=== PATIENT | female | born 1925 | race Caucasian/White ===

== ENCOUNTER 2016-06-16 12:31 | Inpatient (IN) | payer MEDICARE, BC ==
[~2016-06-16] VITALS: Ht 154.9 cm; Wt 87.9 kg
[2016-06-16] MEDS ORDERED: SODIUM CHLORIDE 0.9% 1,000 ML IVB ONE (12:58)
[2016-06-16 14:08] LABS: Basophils # (auto) 0 uL; Basophils % (auto) 0.6 % (0.0-2.0); DEFINITIVE VIEW TRANSMISSION; Eosinophils # (auto) 0.1 uL; Eosinophils % (auto) 0.6 % (0.0-7.0); Hematocrit 29.1 % (36.0-46.0); Lymphocytes # (auto) 1.1 uL; Lymphocytes % (auto) 13.3 % (10.0-50.0); Mean Corpuscular Hemoglobin 23.7 pg (28.0-32.0); Mean Corpuscular Volume 76.7 fL (80.0-100.0); Mean Platelet Volume 8.3 fL (7.4-10.4); Monocytes # (auto) 0.4 uL; Monocytes % (auto) 5.1 % (0.0-12.0); Neutrophils # (auto) 6.6 uL; Neutrophils % (auto) 80.4 % (37.0-80.0); Platelet Count (auto) 373 10^3/uL (140-450); Red Cell Distribution Width 18.6 % (11.6-16.0); White Blood Cell 8.2 10^3/uL (4.4-10.8)
[2016-06-16 14:29] LABS: Urine Bilirubin Negative (Negative); Urine Blood Negative /uL (Negative); Urine Color Yellow (Yellow); Urine Glucose Normal (Normal); Urine Hyaline Cast FEW /lpf (0 - 2); Urine Ketone Negative (Negative); Urine Nitrite Negative (Negative); Urine RBC <1 /hpf (0 - 4); Urine Squamous Epithelial Cell FEW /hpf (<5); Urine Urobilinogen Normal (Negative)
[2016-06-16 14:36] LABS: BUN/Creatinine Ratio 20.6; Bilirubin, Total 0.4 mg/dL (0.2-1.0); Calcium 7.3 mg/dL (8.5-10.1); Magnesium 2.3 mg/dL (1.6-2.6); Potassium 3.4 mmol/L (3.5-5.1); Total Protein 6.3 g/dL (6.4-8.2)
[2016-06-16] MEDS ORDERED: CARV3.1240 (17:17)
[2016-06-16] MEDS ORDERED: ETH1T (17:17)
[2016-06-16] MEDS ORDERED: LOSA100T27 (17:17)
[2016-06-16] MEDS ORDERED: GABA300C8 (17:17)
[2016-06-16] MEDS ORDERED: MAGN400T23 (17:17)
[2016-06-16] MEDS ORDERED: cefTRIAXone 1GM/50ML D5W 50 ML IV ONE (18:15)
[2016-06-16] MEDS ORDERED: MORPHINE SULF INJ 2 MG/ML SYRINGE 1ML IV PRN ×2 (18:15)
[2016-06-16] MEDS ORDERED: POTASSIUM CHLORIDE 8 MEQ TAB PO ONE (18:15)
[2016-06-16] MEDS ORDERED: DOCUSATE SOD 100 MG CAP PO PRN (18:15)
[2016-06-16] MEDS ORDERED: NITROGLYCERIN 0.4 MG SL TAB SL PRN (18:15)
[2016-06-16] MEDS ORDERED: ONDANSETRON HCL 4 MG/2 ML VIAL IV PRN (18:15)
[2016-06-16] MEDS ORDERED: HYDROcodone-ACET 5/325MG TAB PO PRN (18:15)
[2016-06-16] MEDS ORDERED: ASPirin-EC 81 mg tab PO ONE (18:15)
[2016-06-16] MEDS ORDERED: ACETAMINOPHEN 325 MG TAB PO PRN (18:15)
[2016-06-16] MEDS ORDERED: FUROSEMIDE 40 MG TAB PO ONE (18:30)
[2016-06-16] MEDS ORDERED: LOSARTAN POTASSIUM 50 MG TAB PO ONE (18:30)
[2016-06-16] MEDS ORDERED: amLODIPine BESYLATE 5 MG TAB PO ONE (18:30)
[2016-06-16] MEDS: FAMOTIDINE 20 MG TAB PO SCH (19:43)
[2016-06-16] MEDS: ENOXAPARIN SOD 40 MG/0.4 ML SYRINGE SC SCH (19:44)
[2016-06-16] MEDS: MULTIPLE VITAMIN TAB PO SCH (20:07)
[2016-06-16] MEDS: BOOST PLUS 8 ounce PO SCH (20:07)
[2016-06-16 20:30] VITALS: BP 117/64
[2016-06-16 21:00] VITALS: BP 117/64
[2016-06-16] MEDS: SODIUM CHLOR 0.9% PF (SALINE LOCK) 10ML VIAL IV SCH (21:17)
[2016-06-16] MEDS: REQUIP 2 MG PO SCH (21:18)
[2016-06-16] MEDS: CARVEDILOL 3.125 MG TAB PO SCH (21:21)
[2016-06-16] MEDS: ATORVASTATIN 20 MG TAB PO SCH (21:21)
[2016-06-17] VITALS (7 sets, daily range): BP systolic 127–166; BP diastolic 56–82
[2016-06-17 05:30] LABS: Basophils # (auto) 0.1 uL; Basophils % (auto) 0.8 % (0.0-2.0); DEFINITIVE VIEW TRANSMISSION; Eosinophils # (auto) 0 uL; Eosinophils % (auto) 0.5 % (0.0-7.0); Hematocrit 30.2 % (36.0-46.0); Hemoglobin 9.6 g/dL (12.2-16.2); Lymphocytes # (auto) 2.3 uL; Lymphocytes % (auto) 30.1 % (10.0-50.0); Mean Corpuscular Hgb Conc. 31.6 g/dL (32.0-36.0); Mean Corpuscular Volume 75.9 fL (80.0-100.0); Mean Platelet Volume 8.7 fL (7.4-10.4); Monocytes # (auto) 0.5 uL; Monocytes % (auto) 7.1 % (0.0-12.0); Neutrophils # (auto) 4.7 uL; Neutrophils % (auto) 61.5 % (37.0-80.0); Platelet Count (auto) 417 10^3/uL (140-450); Red Cell Distribution Width 18.4 % (11.6-16.0); White Blood Cell 7.7 10^3/uL (4.4-10.8)
[2016-06-17] MEDS: REQUIP 2 MG PO SCH (06:00)
[2016-06-17] MEDS: SODIUM CHLOR 0.9% PF (SALINE LOCK) 10ML VIAL IV SCH ×3 (06:00→22:26)
[2016-06-17 06:02] LABS: Albumin 3.3 g/dL (3.4-5.0); BUN/Creatinine Ratio 19.3; Bilirubin, Total 0.3 mg/dL (0.2-1.0); Calcium 7.8 mg/dL (8.5-10.1); Potassium 3.9 mmol/L (3.5-5.1); Total Protein 7.1 g/dL (6.4-8.2)
[2016-06-17] MEDS: LEVOTHYROXINE SODIUM 25 MCG TAB PO SCH (06:45)
[2016-06-17] MEDS ORDERED: cloNIDine HCL 0.1 MG TAB PO PRN (10:00)
[2016-06-17] MEDS ORDERED: MAGNESIUM OXIDE 400 MG TAB PO SCH (10:00)
[2016-06-17] MEDS: FUROSEMIDE 40 MG TAB PO SCH (12:20)
[2016-06-17] MEDS: LOSARTAN POTASSIUM 50 MG TAB PO SCH (12:21)
[2016-06-17] MEDS: CARVEDILOL 3.125 MG TAB PO SCH ×2 (12:22→22:18)
[2016-06-17] MEDS: amLODIPine BESYLATE 5 MG TAB PO SCH (12:22)
[2016-06-17] MEDS: POTASSIUM CHL 10 Meq TABLET PO SCH (12:22)
[2016-06-17] MEDS: ASPirin-EC 81 mg tab PO SCH (12:23)
[2016-06-17] MEDS: MULTIPLE VITAMIN TAB PO SCH (12:23)
[2016-06-17] MEDS: cefTRIAXone 1GM/50ML D5W 50 ML IV SCH (12:24)
[2016-06-17] MEDS: MAGNESIUM OXIDE 400 MG TAB PO SCH (12:24)
[2016-06-17] MEDS: BOOST PLUS 8 ounce PO SCH ×3 (12:24→18:06)
[2016-06-17] MEDS ORDERED: ROPI1TAB22 PO (12:34)
[2016-06-17] MEDS: FAMOTIDINE 20 MG TAB PO SCH (12:42)
[2016-06-17] MEDS: PRAMIPEXOLE DIHYDROCHLORIDE MO 0.25 MG TAB PO SCH ×2 (13:45→22:19)
[2016-06-17] MEDS: ENOXAPARIN SOD 40 MG/0.4 ML SYRINGE SC SCH (18:06)
[2016-06-17] MEDS: LEVETIRACETAM 500 MG TAB PO SCH (22:18)
[2016-06-17] MEDS: TEMAZEPAM 15 MG CAP PO PRN (22:19)
[2016-06-17] MEDS: ATORVASTATIN 20 MG TAB PO SCH (22:25)
[2016-06-18] VITALS (7 sets, daily range): BP systolic 108–158; BP diastolic 56–88
[2016-06-18] MEDS: PRAMIPEXOLE DIHYDROCHLORIDE MO 0.25 MG TAB PO SCH ×3 (05:34→21:48)
[2016-06-18] MEDS: LEVOTHYROXINE SODIUM 25 MCG TAB PO SCH (06:18)
[2016-06-18] MEDS: SODIUM CHLOR 0.9% PF (SALINE LOCK) 10ML VIAL IV SCH ×3 (06:18→21:52)
[2016-06-18 06:31] LABS: Basophils # (auto) 0.1 uL; Basophils % (auto) 0.6 % (0.0-2.0); DEFINITIVE VIEW TRANSMISSION; Eosinophils # (auto) 0.2 uL; Eosinophils % (auto) 1.7 % (0.0-7.0); Hemoglobin 9.7 g/dL (12.2-16.2); Lymphocytes # (auto) 2.1 uL; Mean Corpuscular Hemoglobin 23.8 pg (28.0-32.0); Mean Corpuscular Hgb Conc. 31.4 g/dL (32.0-36.0); Mean Corpuscular Volume 75.7 fL (80.0-100.0); Mean Platelet Volume 8.9 fL (7.4-10.4); Monocytes # (auto) 0.7 uL; Monocytes % (auto) 8.3 % (0.0-12.0); Neutrophils % (auto) 66.4 % (37.0-80.0); Platelet Count (auto) 390 10^3/uL (140-450); Red Cell Distribution Width 18.8 % (11.6-16.0)
[2016-06-18 06:49] LABS: Albumin 3.3 g/dL (3.4-5.0); BUN/Creatinine Ratio 17.8; Bilirubin, Total 0.4 mg/dL (0.2-1.0); Calcium 8.1 mg/dL (8.5-10.1); Potassium 3.4 mmol/L (3.5-5.1); Total Protein 7.2 g/dL (6.4-8.2)
[2016-06-18] MEDS: FUROSEMIDE 40 MG TAB PO SCH (10:00)
[2016-06-18] MEDS: LOSARTAN POTASSIUM 50 MG TAB PO SCH (10:00)
[2016-06-18] MEDS: amLODIPine BESYLATE 5 MG TAB PO SCH (10:00)
[2016-06-18] MEDS: cefTRIAXone 1GM/50ML D5W 50 ML IV SCH (10:14)
[2016-06-18] MEDS: MAGNESIUM OXIDE 400 MG TAB PO SCH (10:16)
[2016-06-18] MEDS: LEVETIRACETAM 500 MG TAB PO SCH ×2 (10:16→21:48)
[2016-06-18] MEDS: FAMOTIDINE 20 MG TAB PO SCH (10:16)
[2016-06-18] MEDS: POTASSIUM CHL 10 Meq TABLET PO SCH (10:16)
[2016-06-18] MEDS: CARVEDILOL 3.125 MG TAB PO SCH ×2 (10:16→21:49)
[2016-06-18] MEDS: ASPirin-EC 81 mg tab PO SCH (10:17)
[2016-06-18] MEDS: MULTIPLE VITAMIN TAB PO SCH (10:17)
[2016-06-18] MEDS: BOOST PLUS 8 ounce PO SCH ×3 (12:00→18:52)
[2016-06-18] MEDS ORDERED: POTASSIUM CHL 10 Meq TABLET PO ONE (14:15)
[2016-06-18 16:34] LABS: Temperature: 23.3 C (20.0-25.0)
[2016-06-18] MEDS: ENOXAPARIN SOD 40 MG/0.4 ML SYRINGE SC SCH (18:52)
[2016-06-18] MEDS ORDERED: CYANOCOBALAMIN (B-12) 1000 MCG/1 ML VIAL IM ONE (21:30)
[2016-06-18] MEDS: ATORVASTATIN 20 MG TAB PO SCH (21:46)
[2016-06-18] MEDS: TEMAZEPAM 15 MG CAP PO PRN (21:47)
[2016-06-19 05:00] VITALS: BP 163/85
[2016-06-19] MEDS: SODIUM CHLOR 0.9% PF (SALINE LOCK) 10ML VIAL IV SCH ×2 (05:31→14:00)
[2016-06-19 06:21] LABS: Aspartate Aminotransferase 12 U/L (15-37); BUN/Creatinine Ratio 28.4; Blood Urea Nitrogen 19 mg/dL (7-18); Calcium 8.2 mg/dL (8.5-10.1); Carbon Dioxide 28 mmol/L (21-32); GFR African American 107 mL/min; GFR Non-African American 88 mL/min; Glucose 83 mg/dL (74-106)
[2016-06-19 06:31] LABS: Basophils # (auto) 0 uL; Basophils % (auto) 0.5 % (0.0-2.0); DEFINITIVE VIEW TRANSMISSION; Eosinophils # (auto) 0.2 uL; Eosinophils % (auto) 3.1 % (0.0-7.0); Hematocrit 29.5 % (36.0-46.0); Hemoglobin 9.4 g/dL (12.2-16.2); Lymphocytes # (auto) 1.8 uL; Lymphocytes % (auto) 23.6 % (10.0-50.0); Mean Corpuscular Hemoglobin 24.1 pg (28.0-32.0); Mean Corpuscular Hgb Conc. 31.9 g/dL (32.0-36.0); Mean Corpuscular Volume 75.7 fL (80.0-100.0); Mean Platelet Volume 8.8 fL (7.4-10.4); Monocytes # (auto) 0.8 uL; Monocytes % (auto) 9.9 % (0.0-12.0); Neutrophils # (auto) 4.8 uL; Neutrophils % (auto) 62.9 % (37.0-80.0); Platelet Count (auto) 355 10^3/uL (140-450); Red Cell Distribution Width 18.2 % (11.6-16.0); White Blood Cell 7.6 10^3/uL (4.4-10.8)
[2016-06-19 06:36] LABS: Alkaline Phosphatase 60 U/L (45-117); Bilirubin, Total 0.1 mg/dL (0.2-1.0); Total Protein 6.6 g/dL (6.4-8.2)
[2016-06-19 06:41] LABS: Chloride 104 mmol/L (98-107)
[2016-06-19] MEDS: LEVOTHYROXINE SODIUM 25 MCG TAB PO SCH (06:51)
[2016-06-19] MEDS: PRAMIPEXOLE DIHYDROCHLORIDE MO 0.25 MG TAB PO SCH ×2 (06:52→14:29)
[2016-06-19 07:58] LABS: Potassium 3.4 mmol/L (3.5-5.1)
[2016-06-19 07:59] LABS: Anion Gap 10 (5-15); Sodium 142 mmol/L (136-145)
[2016-06-19 08:00] VITALS: BP 155/64
[2016-06-19] MEDS: BOOST PLUS 8 ounce PO SCH ×2 (08:00→12:00)
[2016-06-19] MEDS: LEVETIRACETAM 500 MG TAB PO SCH (09:56)
[2016-06-19] MEDS: LOSARTAN POTASSIUM 50 MG TAB PO SCH (09:56)
[2016-06-19] MEDS: FAMOTIDINE 20 MG TAB PO SCH (09:56)
[2016-06-19] MEDS: FUROSEMIDE 40 MG TAB PO SCH (09:57)
[2016-06-19] MEDS: ASPirin-EC 81 mg tab PO SCH (09:57)
[2016-06-19] MEDS: amLODIPine BESYLATE 5 MG TAB PO SCH (09:58)
[2016-06-19] MEDS: cefTRIAXone 1GM/50ML D5W 50 ML IV SCH (09:59)
[2016-06-19] MEDS ORDERED: CYANOCOBALAMIN 500 MCG TAB PO SCH (10:00)
[2016-06-19] MEDS: CARVEDILOL 3.125 MG TAB PO SCH (10:00)
[2016-06-19] MEDS: POTASSIUM CHL 10 Meq TABLET PO SCH (10:16)
[2016-06-19] MEDS: MAGNESIUM OXIDE 400 MG TAB PO SCH (10:17)
[2016-06-19] MEDS: MULTIPLE VITAMIN TAB PO SCH (10:17)
[2016-06-19 12:30] VITALS: BP 145/57
[2016-06-19 14:29] VITALS: BP 155/64
== END 2016-06-19 16:20 | disposition home or self-care (01) | DRG 307 ==
LOC: EDBD 12:31 → EDUNIT# 12:31 → ER 12:33 → TELE 12:34 → TELE-CENTR 20:20
PROVIDERS: ADMIT Internal Medicine; ATTEND Internal Medicine
DX: I35.0 Nonrheumatic aortic (valve) stenosis (principal); I13.0 Hypertensive heart and chronic kidney disease with heart failure and stage 1 through stage 4 chronic kidney disease, or unspecified chronic kidney disease; N39.0 Urinary tract infection, site not specified; E44.0 Moderate protein-calorie malnutrition; E87.1 Hypo-osmolality and hyponatremia; P91.60 Hypoxic ischemic encephalopathy [HIE], unspecified; E87.6 Hypokalemia; E83.51 Hypocalcemia; E11.22 Type 2 diabetes mellitus with diabetic chronic kidney disease; N18.2 Chronic kidney disease, stage 2 (mild); I27.2 Other secondary pulmonary hypertension; D50.9 Iron deficiency anemia, unspecified; E03.9 Hypothyroidism, unspecified; F03.90 Unspecified dementia, unspecified severity, without behavioral disturbance, psychotic disturbance, mood disturbance, and anxiety; G25.81 Restless legs syndrome; G40.909 Epilepsy, unspecified, not intractable, without status epilepticus; G47.00 Insomnia, unspecified; I50.9 Heart failure, unspecified; K59.00 Constipation, unspecified; Z79.899 Other long term (current) drug therapy; Z82.49 Family history of ischemic heart disease and other diseases of the circulatory system; Z95.2 Presence of prosthetic heart valve; Z68.36 Body mass index [BMI] 36.0-36.9, adult
CPT/HCPCS: 36415; 70450; 70551; 71010; 80053; 81001; 82607; 82728; 82746; 83540; 83735; 84439; 84443; 84484; 85025; 87086; 87088; 87186; 92610; 93005; 93306; 93886; 94761; 95819; 96361; 96374; J0696